=== PATIENT | female | born 1970 | race Caucasian/White ===

== ENCOUNTER 2017-03-12 20:56 | Emergency (ER) | payer OTHER ==
[~2017-03-12] VITALS: Ht 152.4 cm; Wt 79.8 kg
[~2017-03-12 20:56] MED LIST: METF-431 PO
[2017-03-12 21:07] VITALS: BP 148/68
--- NOTE | 2017-03-12 21:11 | NUR ---
TO LOBBY, BINH HAWKINS, A/W BED, LAST NOTED
[2017-03-12] MEDS ORDERED: ACETAMINOPHEN EXTRA STRENGTH 500 MG TAB ONE (21:23)
--- NOTE | 2017-03-13 00:41 | NUR ---
46/F c/o flu like symptoms x3 days, mostly headache, cough, sore throat x3 days. Patient was seen at clinic yesterday, prescribed antibiotics and tylenol but pt states "It's not helping." Patient AOX4, yi speaking, clear speech. VSS. No distress noted.
[2017-03-13] MEDS ORDERED: KETOROLAC 60 MG/2 ML VIAL IM ONE (01:05)
[2017-03-13 01:26] VITALS: BP 133/63
--- NOTE | 2017-03-13 01:26 | NUR ---
Patient discharged with v/s stable. Written and verbal after care instructions given and explained. Patient alert, oriented and verbalized understanding of instructions. Ambulatory with steady gait. All questions addressed prior to discharge. ID band removed. Patient advised to follow up with PMD. Rx of Promethazine and Motrin given. Patient educated on indication of medication including possible reaction and side effects. Opportunity to ask questions provided and answered.
== END 2017-03-13 01:26 | disposition home or self-care (01) ==
LOC: MED 20:56
DX: J06.9 Acute upper respiratory infection, unspecified (principal); R03.0 Elevated blood-pressure reading, without diagnosis of hypertension; E11.9 Type 2 diabetes mellitus without complications
CPT/HCPCS: 96372; 99283; J1885

== ENCOUNTER 2018-01-03 12:53 | Emergency (ER) | payer OTHER ==
[~2018-01-03] VITALS: Ht 147.3 cm; Wt 76.2 kg
[2018-01-03 12:58] VITALS: BP 147/67
[2018-01-03] MEDS ORDERED: NACL 0.9% 1,000 ML IV SCH (14:19)
[2018-01-03 14:59] LABS: BASOPHILS % (AUTO) 0.4 % (0.0-2.0); EOSINOPHILS % (AUTO) 0.5 % (0.0-4.0); HEMATOCRIT 27.1 % (36-48); HEMOGLOBIN 9.2 g/dL (12.0-16.0); LYMPHOCYTES # (AUTO) 1.6 K/uL (2.5-16.5); LYMPHOCYTES % (AUTO) 41.7 % (20.5-51.1); MEAN CORPUSCULAR HEMOGLOBIN 31 pg (27-31); MEAN CORPUSCULAR HGB CONC 34 g/dL (33-37); MEAN CORPUSCULAR VOLUME 90.3 fL (80-94); MONOCYTES % (AUTO) 26.6 % (1.7-9.3); NEUTROPHILS # (AUTO) 1.2 K/uL (1.8-7.7); NEUTROPHILS % (AUTO) 30.8 % (42.2-75.2); PLATELET COUNT (AUTO) 137 K/uL (140-450); RED BLOOD CELL COUNT(AUTO) 3.01 MIL/uL (4.20-5.40); RED CELL DISTRIBUTION WIDTH 17.7 % (11.6-13.7); WHITE BLOOD COUNT (AUTO) 3.8 K/uL (4.8-10.8)
[2018-01-03 15:15] LABS: APPEARANCE,URINE CLEAR (CLEAR); COLOR,URINE YELLOW (YELLOW); LEUKOCYTE ESTERASE ,URINE NEGATIVE (NEGATIVE); NITRITE, URINE NEGATIVE (NEGATIVE)
[2018-01-03 15:16] LABS: BLOOD, URINE 2+ (NEGATIVE)
[2018-01-03 15:17] LABS: BILIRUBIN,URINE NEGATIVE (NEGATIVE); UGLUCOSE 4+ (NEGATIVE)
[2018-01-03 15:21] LABS: RBC,URINE 3-10 (FEW) /HPF (0-5); WBC,URINE 0-5 (RARE) /HPF (0-5)
[2018-01-03 15:22] LABS: MAGNESIUM 1.4 mg/dL (1.8-2.4); URIC ACID 2.8 mg/dL (2.6-7.2)
[2018-01-03 15:23] LABS: ACETONE, SERUM NEGATIVE (NEGATIVE); PROTHROMBIN TIME 9.9 secs (10.8-13.4)
[2018-01-03 15:32] LABS: ANION GAP 12.5 (8-16); CARBON DIOXIDE 27.5 mmol/L (21-32); CREATININE 0.9 mg/dL (0.6-1.3); TOTAL BILIRUBIN 0.5 mg/dL (0.0-1.0)
[2018-01-03] MEDS ORDERED: KETOROLAC 60 MG/2 ML VIAL IM ONE (17:10)
[2018-01-03] MEDS ORDERED: LORazepam 2 MG/ML VIAL IM ONE (17:10)
[2018-01-03] MEDS ORDERED: INSULIN REGULAR, HUMAN 100 UNIT/ML VIAL SUBQ ONE (18:10)
[2018-01-03 18:32] VITALS: BP 126/50
== END 2018-01-03 18:30 | disposition home or self-care (01) ==
LOC: MED 12:53
DX: S80.02XA Contusion of left knee, initial encounter (principal); E11.65 Type 2 diabetes mellitus with hyperglycemia; C95.91 Leukemia, unspecified, in remission; F32.9 Major depressive disorder, single episode, unspecified; M54.5 Low back pain; Z79.84 Long term (current) use of oral hypoglycemic drugs; W20.8XXA Other cause of strike by thrown, projected or falling object, initial encounter; Y93.89 Activity, other specified; Y92.89 Other specified places as the place of occurrence of the external cause; Y99.8 Other external cause status
CPT/HCPCS: 36415; 36600; 71045; 73564; 80053; 81001; 82009; 82550; 82553; 82803; 82948; 83036; 83605; 83735; 83874; 83880; 84484; 84550; 85025; 85379; 85610; 85730; 86886; 86900; 86901; 87040; 87086; 93971; 96360; 96372; 99285; J1815; J1885; J2060; J7030; Q0092

== ENCOUNTER 2018-01-25 07:14 | Day surgery (SDC) | payer OTHER ==
[2018-01-25] MEDS ORDERED: LIDOCAINE 2% 100 MG/5 ML UJET TP ONE (09:08)
[2018-01-25] MEDS ORDERED: KETOROLAC 30 MG/ML VIAL ONE (09:08)
== END 2018-01-25 10:39 | disposition home or self-care (01) ==
LOC: MDS 07:14 → MMU 07:20 → MDS 10:39
PROVIDERS: ATTEND Internal Medicine Gastroenterology
DX: Z12.11 Encounter for screening for malignant neoplasm of colon (principal); E11.9 Type 2 diabetes mellitus without complications; E66.9 Obesity, unspecified; C95.91 Leukemia, unspecified, in remission; F32.9 Major depressive disorder, single episode, unspecified; Z79.899 Other long term (current) drug therapy; Z79.84 Long term (current) use of oral hypoglycemic drugs; Z79.4 Long term (current) use of insulin; Z90.49 Acquired absence of other specified parts of digestive tract
CPT/HCPCS: 45378; 81025; 82948; J1885

== ENCOUNTER 2018-02-01 00:13 | Inpatient (IN) | payer OTHER ==
[~2018-02-01] VITALS: Ht 147.3 cm; Wt 75.7 kg
[2018-02-01 00:19] VITALS: BP 118/65
[2018-02-01] MEDS ORDERED: ASPIRIN 325 MG TAB PO ONE (00:40)
[2018-02-01] MEDS ORDERED: MORPHINE SULFATE 4 MG/ML SYR IVP ONE (00:40)
[2018-02-01] MEDS ORDERED: NITROGLYCERIN 2% 1 GM PKT TP ONE (00:40)
[2018-02-01] MEDS ORDERED: INSULIN REGULAR, HUMAN 100 UNIT/ML VIAL IVP ONE (01:35)
[2018-02-01 02:01] LABS: HEMATOCRIT 27.4 % (36-48); HEMOGLOBIN 9.1 g/dL (12.0-16.0); MEAN CORPUSCULAR HEMOGLOBIN 30 pg (27-31); MEAN CORPUSCULAR HGB CONC 33 g/dL (33-37); PLATELET COUNT (AUTO) 103 K/uL (140-450); RED BLOOD CELL COUNT(AUTO) 3.05 MIL/uL (4.20-5.40); RED CELL DISTRIBUTION WIDTH 16.8 % (11.6-13.7)
[2018-02-01 02:23] LABS: CARBON DIOXIDE 25.9 mmol/L (21-32); CREATININE 0.8 mg/dL (0.6-1.3); POTASSIUM 3.9 mmol/L (3.5-5.1); TOTAL BILIRUBIN 0.5 mg/dL (0.0-1.0)
[2018-02-01 02:37] LABS: WHITE BLOOD COUNT (AUTO) 2.8 K/uL (4.8-10.8)
[2018-02-01 02:40] LABS: LYMPHOCYTES % (MANUAL) 69 % (20-46)
[2018-02-01 02:56] LABS: CREATINE KINASE MB 0.3 ng/mL (0-3.6)
[2018-02-01 08:00] VITALS: BP 128/64
[2018-02-01] MEDS ORDERED: DEXTROSE 50% 50 ML SYR IVP PRN (08:25)
[2018-02-01] MEDS ORDERED: OXYBUTYNIN 5 MG TAB PO SCH (09:10)
[2018-02-01] MEDS: ACETAMINOPHEN 325 MG TAB PO PRN (09:26)
[2018-02-01] MEDS: BLOOD GLUCOSE MONITORING 1 DEV DEV FS SCH ×3 (11:57→21:02)
[2018-02-01 12:00] VITALS: BP 106/51
[2018-02-01] MEDS ORDERED: metFORMIN 850 MG TAB PO SCH (12:00)
[2018-02-01] MEDS: IBUPROFEN 400 MG TAB PO SCH ×2 (12:47→17:06)
[2018-02-01] MEDS: INSULIN LISPRO SLIDING SCALE 100 UNITS/ML VIAL SUBQ PRN ×3 (12:51→21:06)
[2018-02-01 13:14] LABS: CHOL/HDL RATIO 2.8 (1-4.5)
[2018-02-01] MEDS: OXYBUTYNIN 5 MG TAB PO SCH ×2 (13:45→17:05)
[2018-02-01] MEDS ORDERED: PNEUMOCOCCAL VACCINE 23 MCG/0.5 ML VIAL IMVAC SCH (15:45)
[2018-02-01 16:00] VITALS: BP 106/51
[2018-02-01 20:00] VITALS: BP 114/55
[2018-02-01] MEDS: GABAPENTIN 100 MG CAP PO SCH (21:02)
[2018-02-02 01:04] VITALS: BP 121/58
[2018-02-02] MEDS: ACETAMINOPHEN 325 MG TAB PO PRN (01:08)
[2018-02-02 04:31] VITALS: BP 112/60
[2018-02-02] MEDS: BLOOD GLUCOSE MONITORING 1 DEV DEV FS SCH (06:14)
[2018-02-02] MEDS: INSULIN LISPRO SLIDING SCALE 100 UNITS/ML VIAL SUBQ PRN (06:18)
[2018-02-02 07:06] LABS: ANION GAP 9.2 (8-16); CARBON DIOXIDE 27.5 mmol/L (21-32); CREATININE 0.8 mg/dL (0.6-1.3); POTASSIUM 3.7 mmol/L (3.5-5.1)
[2018-02-02 07:09] LABS: BASOPHILS % (AUTO) 1.1 % (0.0-2.0); HEMATOCRIT 23.2 % (36-48); HEMOGLOBIN 7.8 g/dL (12.0-16.0); LYMPHOCYTES # (AUTO) 1.3 K/uL (2.5-16.5); LYMPHOCYTES % (AUTO) 42.4 % (20.5-51.1); MEAN CORPUSCULAR HEMOGLOBIN 30 pg (27-31); MEAN CORPUSCULAR HGB CONC 33 g/dL (33-37); MEAN CORPUSCULAR VOLUME 90.1 fL (80-94); MONOCYTES # (AUTO) 0.7 K/uL (0.8-1.0); MONOCYTES % (AUTO) 22.4 % (1.7-9.3); NEUTROPHILS % (AUTO) 33.1 % (42.2-75.2); PLATELET COUNT (AUTO) 107 K/uL (140-450); RED BLOOD CELL COUNT(AUTO) 2.58 MIL/uL (4.20-5.40); WHITE BLOOD COUNT (AUTO) 3.1 K/uL (4.8-10.8)
[2018-02-02] MEDS ORDERED: glipiZIDE 5 MG TAB PO SCH (07:30)
[2018-02-02] MEDS: IBUPROFEN 400 MG TAB PO SCH (07:55)
[2018-02-02 08:00] VITALS: BP 112/56
[2018-02-02] MEDS: GABAPENTIN 100 MG CAP PO SCH (08:28)
[2018-02-02] MEDS: OXYBUTYNIN 5 MG TAB PO SCH (08:28)
[2018-02-02] MEDS ORDERED: TYL3 PO (09:43)
[2018-02-02] MEDS ORDERED: GLIP5TAB13 PO (09:43)
[2018-02-03 12:51] LABS: FOLIC ACID 15.2 ng/mL (>3.0)
== END 2018-02-02 12:05 | disposition home or self-care (01) | DRG 203 ==
LOC: MED 00:13 → MTU 05:22
PROVIDERS: ADMIT Internal Medicine; ATTEND Internal Medicine
PROC: 3E0234Z Introduction of Serum, Toxoid and Vaccine into Muscle, Percutaneous Approach (ICD-10-PCS; principal; 2018-02-02)
DX: R07.89 Other chest pain (principal); C91.40 Hairy cell leukemia not having achieved remission; E44.1 Mild protein-calorie malnutrition; E66.9 Obesity, unspecified; E11.9 Type 2 diabetes mellitus without complications; Z68.34 Body mass index [BMI] 34.0-34.9, adult; Z79.84 Long term (current) use of oral hypoglycemic drugs; Z90.49 Acquired absence of other specified parts of digestive tract; Z23 Encounter for immunization
CPT/HCPCS: 36415; 71045; 71260; 80048; 80053; 82550; 82553; 82607; 82746; 82948; 83036; 83880; 84484; 85025; 85379; 87081; 90732; 93005; 96374; 96375; 99285; J1815; J2270; Q0092; Q9967

== ENCOUNTER 2020-06-13 00:19 | Emergency (ER) | payer OTHER ==
[~2020-06-13] VITALS: Ht 144.8 cm; Wt 80.7 kg
[~2020-06-13 00:19] MED LIST changes: +ACET-503 PO; +GLIP5TAB13 PO
[2020-06-13 00:21] VITALS: BP 150/95
[2020-06-13] MEDS ORDERED: IBUPROFEN 800 MG TAB PO ONE (01:15)
[2020-06-13] MEDS ORDERED: KETAMINE 500 MG/5 ML VIAL IM ONE ×2 (02:20→04:05)
[2020-06-13] MEDS ORDERED: CLINDAMYCIN 600 MG/4 ML VIAL IM ONE (02:20)
[2020-06-13] MEDS ORDERED: LIDOCAINE MPF 1% 10 MG/ML VIAL INJ ONE (02:20)
[2020-06-13] MEDS ORDERED: HYDROcodone/APAP 10/325 MG 1 TAB TAB PO ONE (03:55)
[2020-06-13] MEDS ORDERED: cefTRIAXone 1,000 MG in LIDOCAINE MPF 1% 2.1 ML IM ONE (03:55)
[2020-06-13] MEDS ORDERED: CLIN300C6 PO (03:58)
[2020-06-13] MEDS ORDERED: cefTRIAXone 1,000 MG VIAL ONE (03:58)
[2020-06-13] MEDS ORDERED: LIDOCAINE MPF 1% 5 ML ONE (03:58)
[2020-06-13] MEDS ORDERED: CEFI400C PO (03:58)
[2020-06-13] MEDS ORDERED: ACET-9525 PO (03:59)
[2020-06-13 06:05] VITALS: BP 147/57
== END 2020-06-13 05:55 | disposition home or self-care (01) ==
LOC: MED 00:19
DX: N75.0 Cyst of Bartholin's gland (principal); E11.9 Type 2 diabetes mellitus without complications; Z85.6 Personal history of leukemia; Z79.84 Long term (current) use of oral hypoglycemic drugs; Z79.899 Other long term (current) drug therapy
CPT/HCPCS: 56420; 81025; 87070; 87075; 90471; 90715; 96372; 99285; J0696; J2001; J3490

== ENCOUNTER 2020-06-13 16:41 | Emergency (ER) | payer OTHER ==
[~2020-06-13] VITALS: Ht 149.9 cm; Wt 81.6 kg
[~2020-06-13 16:41] MED LIST changes: +ACET-9525 PO; +CEFI400C PO; +CLIN300C6 PO
[2020-06-13 17:05] VITALS: BP 131/58
--- NOTE | 2020-06-13 17:17 | NUR ---
Patient ambulated to bed with a steady gait.
--- NOTE | 2020-06-13 17:18 | NUR ---
50 Y/O FEMALE HERE FOR A RECHECK POST PROCEDURE FOR CYST PROCEDURE. PT STATES SHE HAD A TUBE AND IT IS NO LONGER THERE BUT DOES FEEL SOMETHING HARD. PAIN IS 6/10 DESCRIBES ACHING AND WORSE WITH SITTING. PMH: LEUKEMIA, DIABETES NKA
--- NOTE | 2020-06-13 17:35 | NUR ---
Dr. Vu at the bedside evaluating patient.
[2020-06-13] MEDS ORDERED: KETOROLAC 30 MG/ML VIAL IM ONE (17:55)
[2020-06-13 18:15] VITALS: BP 131/58
--- NOTE | 2020-06-13 18:15 | NUR ---
Patient discharged with v/s stable. Written and verbal after care instructions given and explained. Patient verbalized understanding. Ambulatory with steady gait. All questions addressed prior to discharge. Advised to follow up with PMD.
== END 2020-06-13 18:15 | disposition home or self-care (01) ==
LOC: MED 16:41
DX: N75.1 Abscess of Bartholin's gland (principal); E11.9 Type 2 diabetes mellitus without complications; Z90.49 Acquired absence of other specified parts of digestive tract; Z79.84 Long term (current) use of oral hypoglycemic drugs; Z79.899 Other long term (current) drug therapy; Z85.9 Personal history of malignant neoplasm, unspecified
CPT/HCPCS: 96372; 99283; J1885